=== PATIENT | female | born 1945 | race Caucasian/White ===

== ENCOUNTER → 2023-10-27 08:02 | Outpatient (REF) | payer MEDICARE, OTHER, SELFPAY | LOC: DHCBC/DCA 08:02 | PROVIDERS: ATTENDING PHYSICIAN Internal Medicine Interventional Cardiology; FAMILY PHYSICIAN Family Medicine | DX: I10 Essential (primary) hypertension (principal); R00.2 Palpitations; I48.92 Unspecified atrial flutter; R94.31 Abnormal electrocardiogram [ECG] [EKG] | CPT/HCPCS: 78452; 93017; A9500; J2785 ==

== ENCOUNTER → 2023-12-21 09:12 | Outpatient (REF) | payer MEDICARE, OTHER, SELFPAY | LOC: RCS 09:12 | PROVIDERS: ATTENDING PHYSICIAN Internal Medicine Interventional Cardiology; FAMILY PHYSICIAN Family Medicine | DX: I10 Essential (primary) hypertension (principal); R00.2 Palpitations; I48.92 Unspecified atrial flutter | CPT/HCPCS: 93306 ==